=== PATIENT | male | born 1990 | race Caucasian/White ===

== ENCOUNTER 2021-04-25 11:24 | Emergency (ER) | payer MEDICARE, MEDICAID ==
[~2021-04-25] VITALS: Ht 180.3 cm; Wt 108.9 kg
[2021-04-25 12:36] VITALS: BP 131/81
== END 2021-04-25 12:37 | disposition home or self-care (01) ==
LOC: M.ERS 11:24
DX: Z20.822 Contact with and (suspected) exposure to COVID-19 (principal)

== ENCOUNTER 2021-05-07 12:27 | Emergency (ER) | payer MEDICARE, MEDICAID ==
[~2021-05-07] VITALS: Ht 180.3 cm; Wt 104.3 kg
[2021-05-07 14:39] VITALS: BP 131/83
== END 2021-05-07 14:40 | disposition home or self-care (01) ==
LOC: M.ERS 12:27
DX: R05 Cough (principal); Z20.822 Contact with and (suspected) exposure to COVID-19; G40.909 Epilepsy, unspecified, not intractable, without status epilepticus